=== PATIENT | female | born 1985 ===

== ENCOUNTER 2020-06-28 10:42 | Emergency (ER) | payer OTHER, SELFPAY ==
--- NOTE | ~2020-06-28 | CT_ITS ---
EXAMINATION: CT abdomen pelvis w con DATE: 06/28/2020 12:09 INDICATION: Epigastric abdominal pain. TECHNIQUE: Computed tomography (CT) of the abdomen and pelvis was performed with 100 mL Omnipaque 350 intravenous contrast. Automated exposure control and iterative reconstruction technique were employe d. The dose-length product was 879.03 mGy-cm. COMPARISON: None. FINDINGS: The visualized portions of the lung bases are clear without pneumonia or pleural effusion. The heart size is normal. No pericardial effusion. There is a small sliding hiatal hernia. There is 8 .6 cm cyst in the liver. There are changes of cholecystectomy. The spleen, pancreas, adrenal glands, and kidneys are normal. There are no dilated loops of bowel. The appendix is normal. There are no pat hologically enlarged lymph nodes. There is no free intraperitoneal fluid. The bones are unremarkable. IMPRESSION: 1. Small sliding hiatal hernia. Reviewed, dictated and finalized at location A. [employer]
--- NOTE | ~2020-06-28 | XR_ITS ---
EXAMINATION: XR chest 1V portable EXAM DATE: 06/28/2020 13:32 INDICATION: Epigastric pain . TECHNIQUE: Portable AP frontal chest x-ray was obtained. There is no prior study for comparison. FINDINGS: The lungs are clear. There are no pleural effusions. The cardiomediastinal silhouette is within normal limits. There is no pneumothorax suspected. The bones and soft tissues are unremarkab le. IMPRESSION: No acute cardiopulmonary findings. Reviewed, dictated and finalized at location A. [employer] ENG[employer]
[2020-06-28 10:51] VITALS: BP 143/90; PULSE 103; RESP 16; TEMP 36.6; O2SAT 100
[2020-06-28 11:19] LABS: Basophils Absolute Auto 0.1 K/mm3 (0.0-0.1); Basophils Percent Auto 0.3 % (0.2-1.2); Eosinophils Absolute Auto 0.4 K/mm3 (0-0.3); Eosinophils Percent Auto 2.6 % (0-4.4); Hematocrit 41.3 % (37.0-47.0); Hemoglobin 13.8 g/dL (12.0-15.0); Immature Granulocyte Absolute 0.05 K/mm3 (0.00-0.031); Immature Granulocyte Percent A 0.3 % (0-0.5); Immature Platelet Fraction Pct 7.3 % (0.9-11.2); Lymphocytes Absolute Auto 1.73 K/mm3 (0.9-3.2); Lymphocytes Percent Auto 11.7 % (18.3-44.2); Mean Corpuscular HGB Conc 33.4 g/dl (32-36); Mean Corpuscular Hemoglobin 31.7 pg (26-34); Mean Corpuscular Volume 94.7 fl (80-100); Mean Platelet Volume 10.6 fl (7.4-10.4); Monocytes Absolute Auto 1.3 K/mm3 (0.1-0.6); Monocytes Percent Auto 8.6 % (2.6-8.5); Neutrophils Absolute Auto 11.3 K/mm3 (1.3-6.7); Neutrophils Percent Auto 76.5 % (45.5-73.1); Platelet Count Result 319 k/mm3 (150-375); Red Blood Count 4.36 M/mm3 (4.2-5.4); White Blood Count 14.8 K/mm3 (4.5-10.0)
[2020-06-28 11:26] LABS: Alanine Aminotransferase 41 U/L (4-35); Albumin Level 4.2 g/dL (3.5-5.1); Alkaline Phosphatase 86 U/L (38-126); Anion Gap 6 mmol/L (8-16); Aspartate Amino Transferase 40 U/L (14-36); Bilirubin,Total 0.5 mg/dL (0.2-1.3); Blood Urea Nitrogen 11 mg/dL (7-17); Calcium 9.3 mg/dL (8.4-10.2); Carbon Dioxide 29 mmol/L (22-30); Chloride 102 mmol/L (98-107); Estimated CRCL calculation 115 ml/min; Estimated Glomerular Filt Rate > 60; Glucose 97 mg/dL (65-105); Lipase 61 U/L (23-300); Potassium 4.1 mmol/L (3.4-5.0); Sodium 137 mmol/L (137-145)
[2020-06-28 11:32] VITALS: BP 143/90; PULSE 98; RESP 16; TEMP 36.7; O2SAT 100
[2020-06-28 11:47] LABS: Add Urine Microscopic? NO; Appearance Urine Clear (Clear); Bacteria Urine Trace /hpf; Bilirubin Urine Negative (Negative); Blood Urine Negative (Negative); Color Urine Straw (Yellow); Glucose Urine UA Negative (Negative); Ketones Urine Negative (Negative); Leukocyte Esterase Ur Negative LEU/UL (Negative); Nitrate Urine Negative (Negative); Protein Urine Negative (Negative); RBC Urine 0-2 /hpf (0-2); Specific Grav Ur 1.008 (1.001-1.035); Squamous Epithelial Cell Urine Few /hpf (Few); Urobilinogen Urine Negative mg/dL (<2.0); WBC Urine 0-3 /hpf
[2020-06-28] MEDS: BELLADONNA ALK/PHENOB ELIX 10 ML, MAG HYDROX/ALUMINUM HYD/SIMETH 30 ML, LIDOCAINE HCL 2... PO (12:02)
--- NOTE | 2020-06-28 13:47 | ED.ABDPAIN ---
HPI - Abdominal Pain General Chief Complaint: Abdominal Pain Stated Complaint: abd pain Time Seen by Provider: 06/28/20 11:15 Source: patient Mode of arrival: ambulatory Limitations: no limitations History of Present Illness HPI narrative: Patient presents with chief complaint of epigastric pain that seems to radiate to the both the left and right side. Patient states she had her gallbladder removed 15 years ago. Patient states as a teenager she did have 2-3 bouts of pancreatitis and so when she called her primary care today they wanted her to be evaluated in ED to make sure that she was not having pancreatitis again. Patient states she has not drink any alcohol and denies any foods or other known triggers. Patient denies vomiting or diarrhea but reports she does have nausea. Patient states the pain has improved today versus how it began yesterday. She denies fever, chills, chest pain, shortness of breath. Related Data Allergies Allergy/AdvReac Type Severity Reaction Status Date / Time ketorolac Allergy Unknown Unknown Verified 06/28/20 11:34 Review of Systems Review of Systems: Narrative: CONSTITUTIONAL: Denies fever, chills, or sweats. EYES: Denies visual changes, redness, or discharge. ENT: Denies rhinorrhea, congestion, sore throat, or otalgia. CARDIOVASCULAR: Denies chest pain, palpitations, or edema. RESPIRATORY: Denies cough or dyspnea. GASTROINTESTINAL: Reports epigastric abdominal pain and nausea denies vomiting or diarrhea. GENITOURINARY: Denies dysuria or hematuria. SKIN: Denies rash or itching. MUSCULOSKELETAL: Denies back pain, myalgia, or joint pain NEUROLOGIC: Denies headache, numbness, dizziness, or weakness. PSYCHIATRIC: Denies anxiety or depression. [facility] Past Medical History Medical History (Updated 06/28/20 @ 13:56 by Cecy Lindsay PA-C) Encounter for cholecystectomy Pancreatitis Surgical History Surgical History (Updated 06/28/20 @ 13:52 by Cecy Lindsay PA-C) Hx of cholecystectomy Social History Social History (Updated 06/28/20 @ 13:53 by Cecy Lindsay PA-C) Smoking status: Former smoker Tobacco type: cigarettes Smoking end date: 06/14/20 Alcohol intake: former Other substance usage details: none Exam Narrative: Exam Narrative: GENERAL: Well-appearing, well-nourished. HEAD: Normocephalic, atraumatic. EYES: PERRLA and EOMI. NECK: Supple. No adenopathy or masses. No vertebral tenderness or loss of ROM. CHEST: Clear to auscultation. No respiratory distress. No wheezes rales or rhonchi HEART: Regular rate and rhythm. Normal peripheral pulses. ABDOMEN: Soft, very tender epigastrically with palpation, nondistended, normal active bowel sounds. No bruises noted. EXTREMITIES: No acute changes in ROM. No edema. SKIN: Warm, dry, no rash. NEURO: No focal deficits. Alert and oriented x3. PSYCH: Normal mood and affect. Course Vital Signs Vital signs: Vital Signs Temperature 97.8 F 06/28/20 10:51 Pulse Rate 103 H 06/28/20 10:51 Respiratory Rate 16 06/28/20 10:51 Blood Pressure 143/90 H 06/28/20 10:51 Pulse Oximetry 100 06/28/20 10:51 Temperature 98.1 F 06/28/20 11:32 Pulse Rate 98 06/28/20 11:32 Respiratory Rate 16 06/28/20 11:32 Blood Pressure 143/90 H 06/28/20 11:32 Pulse Oximetry 100 06/28/20 11:32 MDM - Abdominal Pain MDM Narrative Medical decision making narrative: Small sliding hiatal hernia noted on CT otherwise normal. Patient's white blood cell count is 14.8 I cannot find any sources of infection. Patient denies fever cough. Chest x-ray is negative for pneumonia. CT abdomen pelvis negative for other findings of reportedly elevated white blood cell count. Patient does not have signs of pancreatitis. Urine clear for urinary tract infection.Dr Ruiz signed off on EKG for discharge to rule out atypical presentation of chest pain. Patient states her mother had hiatal hernia surgically repaired recently so she is familiar wit
--- NOTE | 2020-06-28 13:49 | ECG_ITS ---
Measurements Intervals [place] Rate: 67 P: 59 KS: 150 QRS: 58 QRSD: 96 T: 22 QT: 389 QTc: 413 Interpretive Statements SINUS RHYTHM WITH SINUS ARRHYTHMIA INCOMPLETE RIGHT BUNDLE BRANCH BLOCK BORDERLINE ECG Electronically Signed On 06-28-2020 14:16:21 [employer] by Oscar Landers D.O.
== END 2020-06-28 14:27 | disposition home or self-care (01) ==
PROVIDERS: General Practice; Emergency Provider Emergency Medicine; PCP Nurse Practitioner Family
DX: K44.9 Diaphragmatic hernia without obstruction or gangrene (principal); Z87.891 Personal history of nicotine dependence; I45.10 Unspecified right bundle-branch block
CPT/HCPCS: 36415; 71045; 74177; 80053; 81003; 81025; 83690; 85025; 85055; 93005; 96365; 99284; A9270; J0131; Q9967